=== PATIENT | male | born 1995 | race Caucasian/White ===

== ENCOUNTER 2020-04-21 10:54 | Emergency (ER) | payer BC, SELFPAY ==
[2020-04-21 11:04] VITALS: BP 124/74; PULSE 69; RESP 16; TEMP 36.6; O2SAT 98; BMI 25.0
--- NOTE | 2020-04-21 11:12 | HMH.EDUTC ---
[facility] [place] Impression: Exposure to COVID-19 virus Disposition: Home, Self-Care Condition on Discharge: Good Instructions: DI for COVID-19 (Suspected or Confirmed ), Coronavirus Disease 2019, Preventing the Spread of Coronavirus Discharge Instructions Additional Instructions: *Monitor Temp, Over the counter Motrin or Tylenol as directed/as needed Tylenol every 4 hours and Motrin every 6 hours (as long as your family doctor has told you that you can take it) for fever or pain. and straight to ER if unable to lower temp less than 101.0 after medication given Follow up IMMEDIATELY for new or worsening symptoms or no Noticeable improvement over the next 48-72 hours. 911 for difficulty breathing or swallowing You were tested for today for COVID19 your test result should be back in the next 24-48 hours, you may call to the [facility] to see if your test results are back in the next 48 hours [phone] [facility] hours are 9am-9pm You was given a handout with instructions for Self Quarantine and Self isolation for while you wait on test results and what to do if they are positive If you are positive the Health Dept will be contacting you also Referrals: Anabel Alcala [Primary Care Provider] - As needed Forms: Work/School Release Time of Disposition: 11:13 Medical Decision Making - Eulogio Inquiry Pt receiving controlled substance: No Eulogio was queried for this patient: No Vital Signs: 04/21/20 11:04 Temperature 97.9 F Temperature Source Oral Pulse Rate [Right] 69 Respiratory Rate 16 Blood Pressure [Right Arm] 124/74 Blood Pressure Mean [Right Arm] 90 Blood Pressure Source [Right Arm] Automatic Cuff Blood Pressure Position [Right Arm] Sitting 02 Sat by Pulse Oximetry 98 Oxygen Delivery Method Room Air Orders (Tests/Meds): ORDERS Category Date Time Status Covid-19 Nasal PCR ([facility]) Routine Lab 04/21/20 11:05 Received [facility] [place] - General Stated complaint: exposure Time Seen by Provider: 04/21/20 11:12 Mode of Arrival: Ambulatory Source of Information: Patient Limitations: No Limitations Description of Symptoms (Recalled from Triage Doc. by RN): pt advises he was exposed to covid 2 days ago. Denies any symptoms at this time HEENT Symptoms (Recalled from RN notes): No Resp Symptoms (Recalled from RN notes): No Skin Symptoms (Recalled from RN notes): No MS Symptoms (Recalled from RN notes): No Functional Status (Recalled from RN notes): na - History of Present Illness Provider Complaint: Patient states that he ran into a friend at [facility] a couple days ago and later found out that she got sick and tested positive for COVID States that he is not having any symptoms but wanted to get tested due to having a small child at home - Related Data Previous Rx's Medication Instructions Recorded albuterol sulfate 90 mcg/actuation 2 puff INHALATION Q4-6H PRN 7 Days 01/06/19 aerosol inhaler #6.7 g Allergies Allergy/AdvReac Type Severity Reaction Status Date / Time walnuts Allergy Severe Rash Uncoded 01/06/19 16:48 Penicillin Allergy Intermediate I-RASH Uncoded 05/03/18 15:31 - Worker's Comp Is this a Worker's Comp case?: No [facility] History - Hepatitis A Screen Drug use history?: No High risk sexual behaviors?: No History of sexually transmitted infection?: No Currently employed?: No Childcare worker?: No Do you have indoor plumbing?: Yes Do you have electricity?: Yes Attestation statement:: This patient has been screened for Hepatitis A risk factors. I have reviewed the patient's past medical history: Yes Medical History: Reports:: Asthma Comment: hemophilia Other Surgeries: Yes: No Previous Surgery - Social History Smoking Status: Never smoker Alcohol Intake: current Alcohol Intake Frequency:: holidays/special occasions only Substance Use Type: denies use Occupational Status: employed Housing: house Household Members: family Family Hx:: Bleeding Disorder ROS Obtained: Yes All s
[2020-04-21 11:35] VITALS: BP 122/74; PULSE 65; RESP 16; TEMP 36.7; O2SAT 98
== END 2020-04-21 11:36 | disposition home or self-care (01) ==
PROVIDERS: Emergency Provider Nurse Practitioner; PCP Nurse Practitioner Family
DX: Z20.822 Contact with and (suspected) exposure to COVID-19 (principal); Z88.0 Allergy status to penicillin
CPT/HCPCS: 99202; G0463; U0003

== ENCOUNTER 2020-11-12 10:16 | Emergency (ER) | payer BC, SELFPAY ==
[2020-11-12 11:44] VITALS: BP 126/93; PULSE 104; RESP 20; TEMP 37; O2SAT 97; BMI 25.0
--- NOTE | 2020-11-12 11:46 | HMH.EDUTC ---
[facility] – [place] Disposition Clinical Impression: Viral syndrome, Exposure to COVID-19 virus Disposition: Home, Self-Care Condition on Discharge: Good Instructions: DI for COVID-19 (Suspected or Confirmed ), Preventing the Spread of Coronavirus Discharge Instructions Additional Instructions: Drink plenty of fluids. Take tylenol for pain or fever. Return if you begin to have difficulty breathing. Follow up with your regular doctor. GO TO THE ER FOR ANY WORSENING SYMPTOMS Quarantine until you know the results of your covid-19 test. If it is positive, the health department should call you and give you further instructions about your length of Quarantine and other things. Notify your school or workplace of your results and follow their instructions regarding return to work/school. Prescriptions: Brompheniramine/Pseudoephed/Dm [Bromfed Dm Cough Syrup] 5 ml PO Q6HP PRN #240 ml PRN Reason: Cough Transmission Status: Received by [id number] Ondansetron [Zofran 4mg ODT] 4 mg PO Q8HP PRN #12 tab PRN Reason: Nausea Transmission Status: Received by [id number] Referrals: Anabel Alcala [Primary Care Provider] - Forms: Work/School Release Time of Disposition: 11:49 Medical Decision Making - Medical Records Medical records reviewed: No: I reviewed the patient's medical records. - Eulogio Inquiry Pt receiving controlled substance: No Vital Signs: 11/12/20 11:44 11/12/20 11:50 Temperature 98.6 F 98.6 F Temperature Source Oral Pulse Rate 104 H Pulse Rate [Right Radial] 104 H Respiratory Rate 20 20 Blood Pressure 126/93 H Blood Pressure [Right Arm] 126/93 H Blood Pressure Mean [Right Arm] 104 Blood Pressure Source [Right Arm] Automatic Cuff Blood Pressure Position [Right Arm] Sitting 02 Sat by Pulse Oximetry 97 Oxygen Delivery Method Room Air Room Air Orders (Tests/Meds): ORDERS Category Date Time Status Covid-19 Nasal PCR ([facility]) Routine Lab 11/12/20 11:20 Received [facility] [place] HPI - General Stated complaint: wkness, cough, sob, head, vom, weak, aches Time Seen by Provider: 11/12/20 11:46 - History of Present Illness Provider Complaint: He states that since last night, he has had chilling, low grade fever, cough, and nasal congestion. He has not been vaccinated against covid-19. - Related Data Previous Rx's Medication Instructions Recorded albuterol sulfate 90 mcg/actuation 2 puff INHALATION Q4-6H PRN 7 Days 01/06/19 aerosol inhaler #6.7 g ondansetron HCl 4 mg tablet 4 mg PO Q6H PRN 3 Days #12 tab 06/21/20 Brompheniramine/Pseudoephed/Dm 5 ml PO Q6HP PRN #240 ml 11/12/20 [Bromfed Dm Cough Syrup] Ondansetron [Zofran 4mg ODT] 4 mg PO Q8HP PRN #12 tab 11/12/20 Allergies Allergy/AdvReac Type Severity Reaction Status Date / Time walnuts Allergy Severe Rash Uncoded 01/06/19 16:48 Penicillin Allergy Intermediate I-RASH Uncoded 05/03/18 15:31 [facility] History - Hepatitis A Screen Attestation statement:: This patient has been screened for Hepatitis A risk factors. I have reviewed the patient's past medical history: Yes Medical History: Reports:: Asthma Comment: hemophilia Other Surgeries: Yes: No Previous Surgery - Social History Smoking Status: Never smoker Alcohol Intake: current Alcohol Intake Frequency:: holidays/special occasions only Substance Use Type: denies use Occupational Status: employed Housing: house Household Members: family Family Hx:: Bleeding Disorder ROS Obtained: Yes All systems reviewed & no additional complaints - Constitutional Constitutional: Reports body ache, Reports chills, Reports fever(s), Reports poor appetite, Reports malaise - Eyes Eyes: Denies eye discharge - ENT Ears, Nose, Mouth, and Throat: Denies dizziness, Denies otalgia, Denies sore throat - Cardiovascular Cardiovascular: Denies chest pain - Respiratory Respiratory: Denies chest congestion, Reports cough, Denies dyspnea, Denies stridor, Denies w
[2020-11-12 11:50] VITALS: BP 126/93; PULSE 104; RESP 20; TEMP 37; O2SAT 97
== END 2020-11-12 11:54 | disposition home or self-care (01) ==
PROVIDERS: Emergency Provider Nurse Practitioner Family; PCP Nurse Practitioner Family
DX: B34.9 Viral infection, unspecified (principal); Z20.822 Contact with and (suspected) exposure to COVID-19
CPT/HCPCS: 99202; G0463; U0003

== ENCOUNTER 2020-11-13 18:21 | Emergency (ER) | payer BC, SELFPAY ==
[2020-11-13 18:40] VITALS: BP 128/79; PULSE 76; RESP 18; TEMP 36.6; O2SAT 98; BMI 25.0
--- NOTE | 2020-11-13 19:18 | HMH.EDUTC ---
[facility] – [place] Disposition Clinical Impression: Exposure to COVID-19 virus Disposition: Home, Self-Care Condition on Discharge: Good Instructions: DI for COVID-19 (Suspected or Confirmed ), Preventing the Spread of Coronavirus Discharge Instructions Additional Instructions: *Monitor Temp, Over the counter Motrin or Tylenol as directed/as needed Tylenol every 4 hours and Motrin every 6 hours (as long as your family doctor has told you that you can take it) for fever or pain. and straight to ER if unable to lower temp less than 101.0 after medication given *Warm salt water gargles may help to soothe the throat *Throat Lozenges *Warm fluids like tea with honey may help to soothe the throat *Sleep elevated *Humidifier/Vaporizer Follow up IMMEDIATELY for new or worsening symptoms or no Noticeable improvement over the next 48-72 hours. 911 for difficulty breathing or swallowing You were tested for today for COVID19 your test result should be back in the next 24-48 hours, You was given written instructions for [facility] portal you can see your results there when they come back you may check it often to see if they are done You was given a handout with instructions for Self Quarantine and Self isolation for while you wait on test results and what to do if they are positive If you are positive the Health Dept will be contacting you also Make sure to take your Vitamins Vit. C Vit D and Zinc if you can take them Referrals: Anabel Alcala [Primary Care Provider] - As needed Forms: Work/School Release Medical Decision Making - Eulogio Inquiry Pt receiving controlled substance: No Eulogio was queried for this patient: No Vital Signs: 11/13/20 18:40 Temperature 97.9 F Temperature Source Oral Pulse Rate [Right Brachial] 76 Respiratory Rate 18 Blood Pressure [Right Arm] 128/79 Blood Pressure Mean [Right Arm] 95 Blood Pressure Source [Right Arm] Automatic Cuff Blood Pressure Position [Right Arm] Sitting 02 Sat by Pulse Oximetry 98 Oxygen Delivery Method Room Air [facility] [place] HPI - General Stated complaint: COVID TEST Time Seen by Provider: 11/13/20 19:19 Mode of Arrival: Ambulatory Source of Information: Patient Limitations: No Limitations Description of Symptoms (Recalled from Triage Doc. by RN): COVID TEST D/T POSSIBLE EXPOSURE. C/O SORE THROAT, HEADACHE, AND COUGH HEENT Symptoms (Recalled from RN notes): Yes Resp Symptoms (Recalled from RN notes): No Skin Symptoms (Recalled from RN notes): No MS Symptoms (Recalled from RN notes): No Functional Status (Recalled from RN notes): WNL - History of Present Illness Provider Complaint: Patient state that he has been having sore throat, headache and cough State that him and his brother came in and was tested on and he was given some cough medication and it has helped States that brother was positive and he was negative so he wanted to get tested again to make sure he didnt have it where he was with his brother on State that symptoms are better today but wanted to get tested again to make sure - Related Data Previous Rx's Medication Instructions Recorded albuterol sulfate 90 mcg/actuation 2 puff INHALATION Q4-6H PRN 7 Days 01/06/19 aerosol inhaler #6.7 g ondansetron HCl 4 mg tablet 4 mg PO Q6H PRN 3 Days #12 tab 06/21/20 Brompheniramine/Pseudoephed/Dm 5 ml PO Q6HP PRN #240 ml 11/12/20 [Bromfed Dm Cough Syrup] Ondansetron [Zofran 4mg ODT] 4 mg PO Q8HP PRN #12 tab 11/12/20 Allergies Allergy/AdvReac Type Severity Reaction Status Date / Time Penicillins Allergy Verified 11/13/20 19:00 walnut Allergy Verified 11/13/20 19:00 - Worker's Comp Is this a Worker's Comp case?: No [facility] History - Hepatitis A Screen Drug use history?: No High risk sexual behaviors?: No History of sexually transmitted infection?: No Currently employed?: No Childcare worker?: No Do you have indoor plumbing?: Yes Do you have electricity?: Yes Attestation statement:: This
[2020-11-13 19:26] VITALS: BP 128/79; PULSE 76; RESP 18; TEMP 36.6; O2SAT 98
== END 2020-11-13 19:29 | disposition home or self-care (01) ==
PROVIDERS: Emergency Provider Nurse Practitioner; PCP Nurse Practitioner Family
DX: Z20.822 Contact with and (suspected) exposure to COVID-19 (principal); R05 Cough; J02.9 Acute pharyngitis, unspecified
CPT/HCPCS: 99202; G0463; U0003

== ENCOUNTER → 2021-02-10 12:32 | Outpatient (CLI) | payer OTHER, SELFPAY | PROVIDERS: Visit Provider Nurse Practitioner | DX: U07.1 COVID-19 (principal) | CPT/HCPCS: C9803; U0003; U0005 ==